=== PATIENT | male | born 1960 | race Caucasian/White ===

== ENCOUNTER → 2021-05-31 | Outpatient (CLI) | payer MEDICARE, OTHER ==
--- NOTE | 2021-05-31 14:38 | CONS ---
CONSULTATION DATE OF SERVICE: 05/31/2021 60-year-old gentleman has been evaluated in [facility] for obstructive sleep apnea- hypopnea syndrome. HISTORY OF PRESENT ILLNESS/SLEEP WAKE EVALUATION: Patient has been diagnosed with obstructive sleep apnea 5 years ago. He was started on treatment with CPAP but was not able to tolerate treatment and more than 4 years ago he returned his machine and stopped therapy. Presently, his sleep schedule from 10 p.m. to 10 or 11 am. He does have problems with falling asleep, has TV set in bedroom. He usually sleeps on the side position. He has loud snoring and episodes of stopped breathing during sleep according to his and he also wakes by himself with episodes of gasping for air and nocturia. Positive history of heartburn, sleep talking. In the morning, the patient wakes up tired, has difficulties to pay attention, falling asleep during the day, worries about his sleep, has problems with memory, concentration problems and sexual dysfunction. [place] Sleepiness Scale significantly increased to 13. PAST MEDICAL HISTORY: Positive for hypertension, stroke, coronary artery disease, atherosclerosis with stent in the left leg artery, acid reflux, episodes of headaches and history of strokes 3 years ago with visual changes. No residual deficit. PAST SURGICAL HISTORY: UPPP with tonsillectomy about 40 years ago, stent insertion to coronary arteries, stent insertion to the artery in the left leg, tonsillectomy. SOCIAL HISTORY: Positive for smoking for 40 years 1 pack a day. Alcohol consumption: None. FAMILY HISTORY: Hypertension, arthritis. REVIEW OF SYSTEMS: Multiple awakenings from sleep, sleepiness during the day. PHYSICAL EXAMINATION: GENERAL: gentleman without distress. BP 124/82, HR 84, RR 15, height 5 feet 7-1/4 inches, weight 173.8 pounds, body mass index 26.9, temperature 97.1, oxygen saturation at room air 98%. Oropharynx: No uvula. Neck is 16 inches in circumference. NECK: Supple, no JVD. Thyroid is not palpable. LUNGS: Clear to percussion and to auscultation. Good air exchange. No wheezing or rhonchi. HEART: S1, S2 regular. No murmurs, gallops, or rubs. ABDOMEN: Soft and nontender. Bowel sounds are present. No organomegaly appreciated. EXTREMITIES: No clubbing or cyanosis. LIFTER DRIVER: Awake, alert, and oriented X3. Cranial nerves 2 to 7 intact. There is no fasciculation or atrophy. noted. No focal deficits observed. IMPRESSION: 1. Obstructive sleep apnea-hypopnea syndrome diagnosed 5 years ago. At that time, patient was started on treatment with CPAP but stopped therapy and returned CPAP equipment. Multiple awakenings from sleep, sleepiness during the day, snoring, witnessed episodes of stopped breathing during sleep, sleepiness, [place] Sleepiness Scale increased to 13, obstructive sleep apnea-hypopnea syndrome. 2. History of stroke with visual changes about 3 years ago. No residual deficits. 3. Hypertension. 4. Coronary artery disease, status post stent insertion. 5. Status post stent insertion to artery of left leg. 6. Smoker for more than 40 pack years. 7. Diabetes mellitus. 8. Acid reflux. 9. Headaches. 10.Status post UPPP and tonsillectomy. PLAN: 1. Polysomnography for evaluation of patient's breathing during sleep. 2. CPAP/BiPAP titration if sleep study confirms obstructive sleep apnea-hypopnea syndrome. 3. Preferable position during sleep on the side. 4. No driving if patient feels any sleepiness. 5. I will see patient for follow up visit to explain results of testing and following plan. 6. Smoking cessation program. Evan Velez MD, PhD, FAASM Diplomat of [employer] Sleep Medicine Board of [employer] Shot Fireman [facility] [place] MMODL / JOSE EDUARDON: [id number] /
== END ==
LOC: SLEEP 13:35
PROVIDERS: ATTEND Internal Medicine
DX: G47.33 Obstructive sleep apnea (adult) (pediatric) (principal); I10 Essential (primary) hypertension; I25.10 Atherosclerotic heart disease of native coronary artery without angina pectoris; E11.9 Type 2 diabetes mellitus without complications; K21.9 Gastro-esophageal reflux disease without esophagitis; F17.210 Nicotine dependence, cigarettes, uncomplicated; Z90.09 Acquired absence of other part of head and neck; Z86.73 Personal history of transient ischemic attack (TIA), and cerebral infarction without residual deficits; Z95.5 Presence of coronary angioplasty implant and graft
CPT/HCPCS: 99202

== ENCOUNTER → 2022-11-29 | Outpatient (CLI) | payer MEDICARE ==
[2022-11-30 01:47] LABS: Anion Gap 10.9 mmol/L (10.00-18.00); Carbon Dioxide 24.2 mmol/L (20.0-27.5); Potassium 5.1 mmol/L (3.5-5.5)
== END | disposition home or self-care (01) ==
LOC: LABWHC1 14:00
PROVIDERS: ATTEND Internal Medicine
DX: R89.9 Unspecified abnormal finding in specimens from other organs, systems and tissues (principal)
CPT/HCPCS: 36415; 80051

== ENCOUNTER → 2023-01-22 | Outpatient (CLI) | payer MEDICARE ==
--- NOTE | 2023-01-22 17:54 | P.PN ---
Subjective DATE: 01/22/2023 FOLLOW UP VISIT. Patient with obstructive sleep apnea hypopnea syndrome return to sleep center for follow-up visit. Information from previous visit have been reviewed. Patient is using PAP equipment every night for the whole night, getting PAP supplies in time. The patient does not have significant problems with the mask, PAP unit and humidification. [place] sleepiness scale is 7, which is normal, but patient feels tiredness during the day, under evaluation by a neurologist. I checked information from PAP unit. PAP unit pressure 5-12, average 8.6 cm H2O. Usage is 80% and 53 % for more then 4 hours, average 6 hours per night. Leak is 27.5 l/m, which is in acceptable range. Apnea Hypopnea Index is to 2.3, which is normal. MEDICATIONS:1. Amlodipine 5 mg once a day 2. Plavix 3. Atorvastatin 80 mg once a day 4. Metformin 1000 mg twice a day 5. Singulair 10 mg once a day 6. Pantoprazole 20 mg once a day 7. Tramadol 50 mg as needed 8. Zolpidem 10 mg at bedtime as needed During physical exam: GENERAL: A pleasant patient without any distress. VITAL SIGNS: BP 130/87, HR 82, RR 12 , weight 163.2, temperature 96.9, oxygen saturation at room air 97% . HEENT: PERRLA, EOMI.low position of soft palate, Mallapati 3 . NECK: Supple. No JVD. LUNGS: Clear to percussion and to auscultation. Good air exchange. No wheezing or rhonchi. HEART: S1, S2 regular. ABDOMEN: Soft and nontender.[] EXTREMITIES: No clubbing or cyanosis. CERTIFIED COURT/MEDICAL INTERPRETER: Awake, alert, and oriented x3. No focal deficit. Impressions: 1. Obstructive sleep apnea-hypopnea syndrome. Patient demonstrated borderline compliance with treatment, benefiting from treatment. 2. Coronary artery disease status post stent insertion. 3. Hypertension. 4. Diabetes mellitus. 5. History of stroke about 5 years ago. 6. Acid reflux. 7. History of smoking for more than 40 pack years. 8. Status post stent insertion to artery or the leg. 9. Status post UPPP and tonsillectomy. Plan: 1. Continue using PAP equipment every night for the whole night. 2. To change air filter at least 1-2 times per month. 3. PAP unit should stay lower then position of the head. 4. Advised patient to remove all remaining water from humidifier canister daily and make it dry after each usage. Refill canister with fresh distilled water before each usage. 5. Sleep hygiene with regular time in bed for at least 8 hours. 6. Precautions related to driving. No driving if feel any sleepiness. 7. I will maintain prescription for PAP supplies including mask, tube, filters. 8. Follow up visit in 3-4 months or earlier if patient has any problems. 9. Watching weight. Thank you very much for allowing me to participate in the management of your patient. Evan Velez MD, PhD, FAASM. Diplomat of [place] [employer] [employer], Sleep Medicine Board by [place] [employer] Dynamometer Tester of [facility] [place]
== END ==
LOC: 3 N SLEEP 13:39
PROVIDERS: ATTEND Internal Medicine
DX: G47.33 Obstructive sleep apnea (adult) (pediatric) (principal); I25.10 Atherosclerotic heart disease of native coronary artery without angina pectoris; I10 Essential (primary) hypertension; E11.9 Type 2 diabetes mellitus without complications; K21.9 Gastro-esophageal reflux disease without esophagitis; Z79.84 Long term (current) use of oral hypoglycemic drugs; Z79.899 Other long term (current) drug therapy; Z86.73 Personal history of transient ischemic attack (TIA), and cerebral infarction without residual deficits; Z87.891 Personal history of nicotine dependence; Z95.5 Presence of coronary angioplasty implant and graft; Z98.890 Other specified postprocedural states; Z99.89 Dependence on other enabling machines and devices
CPT/HCPCS: 99212

== ENCOUNTER → 2023-05-22 | Outpatient (CLI) | payer MEDICARE ==
--- NOTE | 2023-05-22 17:41 | P.PN ---
Subjective DATE: 05/22/2023 FOLLOW UP VISIT. Patient with obstructive sleep apnea hypopnea syndrome return to sleep center for follow-up visit. Information from previous visit have been reviewed. Patient is using PAP equipment every night for the whole night, getting PAP supplies in time. The patient does not have significant problems with the mask, PAP unit and humidification. [place] sleepiness scale is increased to 14. I checked information from PAP unit. PAP unit pressure 5-12, average 8.4 cm H2O. Usage is 100 % for more then 4 hours, average 9.75 hours per night. Leak is increased to 45.7 l/m. Apnea Hypopnea Index is 5.5, which is normal. MEDICATIONS:1. Clopidogrel 75 mg once a day 2. Amlodipine 5 mg once a day 3. Pantoprazole 40 mg twice a day During physical exam: GENERAL: A pleasant patient without any distress. VITAL SIGNS: BP 148/92, HR 79, RR 14 , weight 157.0, temperature 98.2, oxygen saturation at room air 98 % . HEENT: PERRLA, EOMI.low position of soft palate, Mallapati 3 . NECK: Supple. No JVD. LUNGS: Clear to percussion and to auscultation. Good air exchange. No wheezing or rhonchi. HEART: S1, S2 regular. ABDOMEN: Soft and nontender.[] EXTREMITIES: No clubbing or cyanosis. BUSINESS ACCOUNT EXECUTIVE: Awake, alert, and oriented x3. No focal deficit. Impressions: 1. Obstructive sleep apnea-hypopnea syndrome. Patient demonstrated great compliance with treatment, benefiting from treatment. 2. Patient has symptoms of excessive daytime sleepiness, [place] Sleepiness Scale increased to 14. Differential diagnosis would include additional diagnosis of possible hypersomnia or narcolepsy. 3. Hypertension. 4. History of stroke about 5 years ago. 5. Diabetes mellitus. 6. Acid reflux. 7. History of smoking for more than 40 pack years. 8. Status post stent insertion to artery of the leg. 9. Status post UPPP and tonsillectomy. Plan: 1. Continue using PAP equipment every night for the whole night. 2. To change air filter at least 1-2 times per month. 3. PAP unit should stay lower then position of the head. 4. Advised patient to remove all remaining water from humidifier canister daily and make it dry after each usage. Refill canister with fresh distilled water before each usage. 5. Sleep hygiene with regular time in bed for at least 8 hours. 6. Precautions related to driving. No driving if feel any sleepiness. 7. I will maintain prescription for PAP supplies including mask, tube, filters. 8. Follow up visit in 6 months or earlier if patient has any problems. 9. Watching weight. 10. We may consider multiple sleep latency test if patient will continue to feel sleepiness during the day differential diagnosis with hypersomnia. Thank you very much for allowing me to participate in the management of your patient. Evan Velez MD, PhD, FAASM. Diplomat of [place] [employer], Sleep Medicine Board by [employer] [employer] Pelt Dropper of [facility] [place]
== END ==
LOC: 3 N SLEEP 14:22
PROVIDERS: ATTEND Internal Medicine
DX: G47.33 Obstructive sleep apnea (adult) (pediatric) (principal); E11.9 Type 2 diabetes mellitus without complications; I10 Essential (primary) hypertension; K21.9 Gastro-esophageal reflux disease without esophagitis; Z79.02 Long term (current) use of antithrombotics/antiplatelets; Z79.899 Other long term (current) drug therapy; Z86.73 Personal history of transient ischemic attack (TIA), and cerebral infarction without residual deficits; Z87.891 Personal history of nicotine dependence; Z98.890 Other specified postprocedural states; Z90.89 Acquired absence of other organs; Z99.89 Dependence on other enabling machines and devices
CPT/HCPCS: 99212

== ENCOUNTER → 2023-12-11 | Outpatient (CLI) | payer MEDICARE ==
[2023-12-11 16:04] VITALS: BP 116/75; PULSE 86; RESP 16; TEMP 98.5
--- NOTE | 2023-12-11 16:31 | P.PROGSL ---
Subjective DATE: 12/11/2023 FOLLOW UP VISIT. Patient with obstructive sleep apnea hypopnea syndrome return to sleep center for follow-up visit. Information from previous visit have been reviewed. Patient is using PAP equipment every night for the whole night, getting PAP supplies in time. The patient does not have significant problems with the mask, PAP unit and humidification. Patient does not sleep well secondary to pain in the neck and in the back area. [place] sleepiness scale is increased to 12. I checked information from PAP unit. PAP unit pressure 5-12, average 9.1 cm H2O. Usage is 97% and 93% for more then 4 hours, average 8.75 hours per night. Leak is increased to 42.5 l/m. Apnea Hypopnea Index is 3.5, which is normal and showed full normalization comparing with the previous visit. MEDICATIONS: Please see below During physical exam: GENERAL: A pleasant patient without any distress. VITAL SIGNS: Please see below, weight 152 pounds, BMI 24.3. HEENT: PERRLA, EOMI.low position of soft palate, Mallapati 3 . NECK: Supple. No JVD. LUNGS: Clear to percussion and to auscultation. Good air exchange. No wheezing or rhonchi. HEART: S1, S2 regular. ABDOMEN: Soft and nontender.[] EXTREMITIES: No clubbing or cyanosis. CLIENT SOLUTIONS MANAGER: Awake, alert, and oriented x3. No focal deficit. Impressions: 1. Obstructive sleep apnea-hypopnea syndrome. Patient demonstrated great compliance with treatment, benefiting from treatment. 2. Neck pain. 3. Back pain. 4. Hypertension. 5. History of stroke about 5 years ago. 6. Diabetes mellitus. 7. Acid reflux. 8. History of smoking for more than 40 pack years. 9. Status post UPPP and tonsillectomy. 10. Status post stent insertion to artery of the leg. Plan: 1. Continue using PAP equipment every night for the whole night. 2. To change air filter at least 1-2 times per month. 3. PAP unit should stay lower then position of the head. 4. Advised patient to remove all remaining water from humidifier canister daily and make it dry after each usage. Refill canister with fresh distilled water before each usage. 5. Sleep hygiene with regular time in bed for at least 8 hours. 6. Precautions related to driving. No driving if feel any sleepiness. 7. I will maintain prescription for PAP supplies including mask, tube, filters. 8. Follow up visit in 6 months or earlier if patient has any problems. 9. Watching weight. Thank you very much for allowing me to participate in the management of your patient. Evan Velez MD, PhD, FAASM. Diplomat of [employer], Sleep Medicine Board by [employer] Bereavement Program Coordinator of [facility] [place] Objective - Vital Signs Vital Signs: Vital Signs Temp 98.5 F 12/11/23 15:59 Pulse 86 12/11/23 15:59 Resp 16 12/11/23 15:59 BP 116/75 12/11/23 15:59 Pulse Ox 95 12/11/23 15:59 FiO2 Intake & Output 12/10/23 12/11/23 12/11/23 18:59 06:59 18:59 Weight 68.946 kg Home Medications: Home Medications Medication Instructions Recorded Confirmed Type Atorvastatin [Lipitor] 80 mg PO DAILY 12/11/23 12/11/23 History Clopidogrel [Plavix] 75 mg PO DAILY 12/11/23 12/11/23 History Glimepiride [Amaryl] 1 mg PO BID 12/11/23 12/11/23 History Pantoprazole [Protonix] 40 mg PO BID 12/11/23 12/11/23 History Zolpidem [Ambien] 10 mg PO DAILY 12/11/23 12/11/23 History metFORMIN HCL 1,000 mg PO BID 12/11/23 12/11/23 History traMADol HCL 50 mg PO TID 12/11/23 12/11/23 History
== END ==
LOC: 3 N SLEEP 15:21
PROVIDERS: ATTEND Internal Medicine
DX: G47.33 Obstructive sleep apnea (adult) (pediatric) (principal); M54.2 Cervicalgia; M54.50 Low back pain, unspecified; I10 Essential (primary) hypertension; E11.9 Type 2 diabetes mellitus without complications; K21.9 Gastro-esophageal reflux disease without esophagitis; Z87.891 Personal history of nicotine dependence; Z90.89 Acquired absence of other organs; Z99.89 Dependence on other enabling machines and devices; Z86.79 Personal history of other diseases of the circulatory system
CPT/HCPCS: 99212

== ENCOUNTER → 2024-07-29 | Outpatient (CLI) | payer MEDICARE ==
[2024-07-29 16:26] VITALS: BP 129/77; PULSE 98; RESP 16; TEMP 97.9
--- NOTE | 2024-07-29 17:37 | P.PROGSL ---
Subjective DATE: 07/29/2024 FOLLOW UP VISIT. Patient returned to sleep center for follow-up visit to discuss results of sleep study. I discussed results of sleep study with patient and family. No significant respiratory abnormalities have been documented during the sleep study, normal oxygenation during sleep. Significant periodic limb movements have been documented at 39.4 times per hour. Patient continued to have symptoms of excessive daytime sleepiness. [place] sleepiness scale is 18 today. MEDICATIONS: Please see below During physical exam: GENERAL: A pleasant patient without any distress. VITAL SIGNS: Please see below, weight 172 pounds. HEENT: PERRLA, EOMI. NECK: Supple. No JVD. LUNGS: Clear to percussion and to auscultation. Good air exchange. No wheezing or rhonchi. HEART: S1, S2 regular. ABDOMEN: Soft and nontender. EXTREMITIES: No clubbing or cyanosis. HIGH SCHOOL COORDINATOR: Awake, alert, and oriented x3. No focal deficit. Impressions: 1. No significant respiratory abnormalities have been documented during the sleep study. Normal oxygenation during sleep 2. Significant periodic limb movements have been documented 39.4 times per hour. 3. Patient continued to have symptoms of excessive daytime sleepiness, [place] Sleepiness Scale today increased to 18. 4. History of thyroid cancer treated by radiation therapy. Presently hy pothyroidism on levothyroxine supplement. 5. Atrial fibrillation. 6. Hyperlipidemia. 7. Glaucoma. 8. Status post permanent pacemaker insertion in April 2024. 9. Status post hernia repair. 10 status post cholecystectomy Plan: 1. Patient will start treatment with lowest dose of dopaminergic agonist Mirapex 0.125 mg 1 to 2 tablets at bedtime to prevent periodic limb movements. 2. Sleep hygiene with regular time in bed for at least 8 hours. 3. If no improvements in alertness on treatment for periodic limb movements we will proceed with multiple sleep latency test. 4. Precautions related to driving. No driving if feel any sleepiness. Patient is aware about civil and criminal liability for unsafe driving, promised to follow recommendations. 5. Please check iron profile with ferritin level, low level of iron may increase risk for periodic limb movements. 7. Follow up visit in 4-6 months or earlier if patient has any problems. Thank you very much for allowing me to participate in the management of your patient. Evan Velez MD, PhD, FAASM. Diplomat of [place] [employer], Sleep Medicine Board by [place] [employer] Living Skills Advisor of [facility] [place] cc: Prisca Reyes MD Objective - Vital Signs Vital Signs: Vital Signs Temp 97.9 F 07/29/24 16:23 Pulse 98 07/29/24 16:23 Resp 16 07/29/24 16:23 BP 129/77 07/29/24 16:23 Pulse Ox 96 07/29/24 16:23 FiO2 Intake & Output 07/28/24 07/29/24 07/29/24 18:59 06:59 18:59 Weight 69.456 kg Home Medications: Home Medications Medication Instructions Recorded Confirmed Type Atorvastatin [Lipitor] 80 mg PO DAILY 12/11/23 12/11/23 History Clopidogrel [Plavix] 75 mg PO DAILY 12/11/23 12/11/23 History Glimepiride [Amaryl] 1 mg PO BID 12/11/23 12/11/23 History Pantoprazole [Protonix] 40 mg PO BID 12/11/23 12/11/23 History Zolpidem [Ambien] 10 mg PO DAILY 12/11/23 12/11/23 History metFORMIN HCL 1,000 mg PO BID 12/11/23 12/11/23 History traMADol HCL 50 mg PO TID 12/11/23 12/11/23 History
== END ==
LOC: 3 N SLEEP 16:05
PROVIDERS: ATTEND Internal Medicine
DX: G47.33 Obstructive sleep apnea (adult) (pediatric) (principal); I48.91 Unspecified atrial fibrillation; E78.5 Hyperlipidemia, unspecified; H40.9 Unspecified glaucoma; Z95.0 Presence of cardiac pacemaker; Z48.815 Encounter for surgical aftercare following surgery on the digestive system; Z90.49 Acquired absence of other specified parts of digestive tract; Z85.850 Personal history of malignant neoplasm of thyroid
CPT/HCPCS: 99212